=== PATIENT | female | born 1935 ===

== ENCOUNTER 2016-07-12 18:17 | Inpatient (IN) | payer MEDICARE, BC, MEDICAID ==
[~2016-07-12] VITALS: Ht 165.1 cm; Wt 59.0 kg
--- NOTE | ~2016-07-12 | CN ---
PATIENT NAME:ANSHUL PLASCENCIA MEDICAL RECORD: [id number] : 39 LOCATION:D. D.[id number] ADMIT DATE: 07/13/16 ACCOUNT: [id number] CONSULTING PHYSICIAN: LINDSAY RIOS MD REFERRING PHYSICIAN: GRACIELA CASTRO MD DATE OF CONSULTATION: 07/14/2016 CONSULT REQUESTING PHYSICIAN: Dr. Graciela Castro. REASON FOR CONSULTATION: Acute mental status changes, metabolic acidosis. HISTORY OF PRESENT ILLNESS: Ms. Plascencia is a 80-year-old female, who is at nursing rehab, the patient was brought into the ER on the of this month with acute mental status changes and metabolic acidosis. She was also having UTI and the patient will put on Rocephin. Repeat ABG was done today and her pH is still 7.1 and her bicarbonate is 14. The patient denies any fever and chills. She just says she is very cold and very weak. There is cough without much sputum production. REVIEW OF SYSTEMS: Mainly in the history of present illness. PAST MEDICAL HISTORY: 1. Parkinson disease. 2. Hypertension. 3. History of cerebrovascular accident. 4. History of seizure disorder. 5. Coronary artery disease. 6. History of atrial fibrillation. PAST SURGICAL HISTORY: Nonsignificant. ALLERGIES: SHE IS ALLERGIC TO PENICILLIN, MORPHINE, PRAVASTATIN AND PROMETHAZINE. PRESENT MEDICATIONS: [employer] was reviewed. PERSONAL AND SOCIAL HISTORY: The patient is a intermediate resident. She is a nonsmoker, nondrinker. FAMILY HISTORY: Noncontributory. PHYSICAL EXAMINATION: GENERAL: Now, the patient is lying comfortably. She is not in acute distress. VITAL SIGNS: The blood pressure is 115/67, pulse is 72, respiration is 16, temperature 98.1, SPO2 is 98-100% on 2 liters nasal cannula. HEENT: Conjunctivae is pink, sclerae nonicteric. NECK: Supple, no JVD. CHEST: The chest excursion is minimal on bibasilar crackles. No wheezing. HEART: Rhythm regular, normal sound, no murmur. ABDOMEN: Soft, bowel sounds present. No hepatosplenomegaly. RECTAL: Deferred. EXTREMITIES: No cyanosis, no clubbing, no pedal edema. CENTRAL NERVOUS SYSTEM: The patient has weakness on the left side. She is legally blind. CONSULT REPORT [id number] ANSHUL PLASCENCIA LABORATORY DATA: CBC: WBC 12.6, hemoglobin 11.1, hematocrit 34.3, the platelet count is 191. Chemistry: Sodium 141, potassium 3.9, BUN is 29, creatinine 1.3, the bicarb is 13.6. ABG: The pH is 7.18, pCO2 is 36.6, the pO2 was 86, bicarbonate is 13.9. The lactic acid level is 1.24. The ammonia level was 27. IMAGING: Chest radiograph, there is thoracic scoliosis. There is increased interstitial markings. CT scan of the head, there are no acute intracranial abnormality. There is a stable encephalomalacia bilaterally. IMPRESSION: 1. Acute mental status changes most likely secondary to sepsis and metabolic encephalopathy. 2. Septicemia. 3. Metabolic acidosis secondary to sepsis. 4. Urinary tract infection. 5. Leukocytosis secondary to sepsis. 6. Parkinson disease. 7. Status post cerebrovascular accident. 8. History of atrial fibrillation. RECOMMENDATION: 1. I will discontinue the Rocephin and start her on Zosyn and Levaquin. 2. Continue supplemental oxygen. 3. Start her on bicarb drip. 4. Follow up labs and chest radiograph in the morning. Dr. Castro, once again thanks for involving me in the care of Ms. Plascencia. The patient is DNR. TRANSINT:[id number] Voice Confirmation ID: [id number] DOCUMENT ID: [id number] LINDSAY RIOS MD CC: GRACIELA CASTRO MD [id number] DICTATION DATE: 07/14/16 162 HURL SHAKER: 07/14/16 2356 ADM IN [place] [id number] [place] [id number]
[~2016-07-12 18:17] MED LIST: ACETAMINOPHEN500 M1 PO; ALTACE5 MG PO; ARICEPT10 MG PO; BUSPAR10 MG PO; CALAN80 MG PO; CATAPRES0.1 MG PO; COUMADIN2.5 MG PO; DEPAKOTE250 MG PO; FERROUS SULFAT325 MG PO; IMODIUM2 MG PO; LANOXIN125 MCG PO; LEVAQUIN250 MG PO; LEXAPRO20 MG PO; LIPITOR40 MG PO; LOMOTIL TABLET1 TAB PO; MELATONIN 3 MG1 TAB PO; METOPROLOL TART50 MG PO; NEURONTIN 300300 MG PO; NITRO-DUR0.3 MG TRANSDERM; NITROSTAT0.4 MG SL; QUESTRAN PACK4 G/PKT PO; REMERON15 MG PO; SINGULAIR10 MG PO; SYNTHROID75 MCG PO; VITAMIN B-121000 MCG PO
[2016-07-12 19:02] LABS: BASOPHILS 0.2 % (0.0-2.0); EOSINOPHILS 1.6 % (0-7); HEMATOCRIT 40.3 % (36.0-48.0); HEMOGLOBIN 12.8 g/dL (12-16); IMMATURE GRANULOCYTES 0.4 % (0-5); LYMPHOCYTES 18.2 % (15-50); MCH 34.2 pg (26.0-34.0); MCHC 31.8 g/dL (31.0-37.0); MCV 107.8 fL (80.0-100.0); MONOCYTES 11.6 % (2-11); RBC 3.74 10x6/uL (4.00-5.40); RDW 18.2 % (11.5-14.5)
[2016-07-12 19:03] LABS: PLATELET COUNT 193 10x3/uL (130-400)
[2016-07-12 19:04] LABS: APPEARANCE CLEAR (CLEAR); BILIRUBIN NEGATIVE (NEGATIVE); COLOR YELLOW (YELLOW); GLUCOSE NEGATIVE (NEGATIVE); KETONE NEGATIVE (NEGATIVE); LEUKOCYTE ESTERASE TRACE (NEGATIVE); NITRITE NEGATIVE (NEGATIVE); PROTEIN TRACE mg/dL (NEGATIVE); UROBILINOGEN NORMAL (NORMAL)
[2016-07-12 19:05] LABS: EPITHELIAL CELLS 0-5 /hpf (0-5); RED CELLS - URINE OCC /hpf (0-5)
[2016-07-12 19:06] LABS: BACTERIA FEW /hpf (NONE SEEN)
[2016-07-12 19:20] LABS: ALBUMIN 2.8 g/dL (3.4-5.0); BILIRUBIN - TOTAL 0.31 mg/dL (0.2-1.3); CALCIUM 9.7 mg/dL (8.5-10.1); CARBON DIOXIDE 15.5 mmol/L (21.0-32.0); CREATININE - SERUM 1.6 mg/dL (0.6-1.3); POTASSIUM - SERUM 4.5 mmol/L (3.5-5.1); PROTEIN - SERUM 7.2 g/dL (6.4-8.2)
[2016-07-12 19:37] LABS: UDS - AMPHET NEGATIVE QUAL (NEGATIVE); UDS - BARB NEGATIVE QUAL (NEGATIVE); UDS - BENZO NEGATIVE QUAL (NEGATIVE); UDS - COCAINE NEGATIVE QUAL (NEGATIVE); UDS - METH NEGATIVE QUAL (NEGATIVE); UDS - OPIATE NEGATIVE QUAL (NEGATIVE); UDS - PCP NEGATIVE QUAL (NEGATIVE); UDS - THC NEGATIVE QUAL (NEGATIVE)
--- NOTE | 2016-07-12 23:08 | NUR ---
RECEIVED FROM EMERGENCY DEPARTMENT VIA STRETCHER PER ADMISSION STAFF. DX. ALTERED MENTAL STATUS/ASPIRATION. HX; CVA 10 YEARS AGO, FLACCID ON LEFT SIDE. RESIDENT OF [facility]. VERY LETHARGIC, AND IS LEGALLY BLIND. IV IN LEFT WRIST W/ 24G IS SALINE LOCKED. GARG CATHETER PATENT WITH PARAG COLOR URINE. WILL CONTINUE TO MONITOR.
[2016-07-13] VITALS (7 sets, daily range): BP systolic 100–142; BP diastolic 51–95; Ht 165.1 cm; Wt 59.0 kg
[2016-07-13] MEDS ORDERED: VITAMIN D31000 UNI2 PO (08:33)
[2016-07-13] MEDS ORDERED: BUSPAR5 MG PO (08:34)
[2016-07-13] MEDS ORDERED: K-DUR20 MEQ PO (08:36)
[2016-07-13] MEDS ORDERED: SINEMET CR 50-1 EACH PO (08:37)
[2016-07-13 09:54] LABS: INR 1.29 (0.85-1.17)
[2016-07-13 11:45] LABS: CALCIUM 9.4 mg/dL (8.5-10.1); CARBON DIOXIDE 12.1 mmol/L (21.0-32.0); CREATININE - SERUM 1.4 mg/dL (0.6-1.3); POTASSIUM - SERUM 4.1 mmol/L (3.5-5.1)
--- NOTE | 2016-07-13 23:41 | NUR ---
RESUMED CARE OF PT, BED IS LOW, SRX2, CALL LIGHT IN REACH, WILL CONTINUE TO MONITOR
[2016-07-14 02:00] VITALS: BP 108/53
[2016-07-14 04:30] VITALS: BP 117/67
[2016-07-14 05:47] LABS: BASOPHILS 0.1 % (0.0-2.0); EOSINOPHILS 0.2 % (0-7); HEMATOCRIT 34.3 % (36.0-48.0); HEMOGLOBIN 11.1 g/dL (12-16); IMMATURE GRANULOCYTES 0.4 % (0-5); LYMPHOCYTES 10.3 % (15-50); MCH 34.6 pg (26.0-34.0); MCHC 32.4 g/dL (31.0-37.0); MCV 106.9 fL (80.0-100.0); MEAN PLATELET VOLUME 12.3 fL (7.4-10.4); MONOCYTES 5.6 % (2-11); NEUTROPHILS 83.4 % (40-80); PLATELET COUNT 191 10x3/uL (130-400); RBC 3.21 10x6/uL (4.00-5.40); RDW 18.2 % (11.5-14.5)
[2016-07-14 05:49] LABS: WBC 12.6 10x3/uL (4.8-10.8)
[2016-07-14 06:17] LABS: ANION GAP 17.3 mmol/L (8-16); CALCIUM 9.3 mg/dL (8.5-10.1); CARBON DIOXIDE 13.6 mmol/L (21.0-32.0); CREATININE - SERUM 1.3 mg/dL (0.6-1.3); POTASSIUM - SERUM 3.9 mmol/L (3.5-5.1)
[2016-07-14 07:31] VITALS: BP 128/62
--- NOTE | 2016-07-14 07:57 | NUR ---
RECEIVED REPORT FROM NIGHT NURSE. PATIENT ASLEEP. WILL CONTINUE TO MONITOR.
--- NOTE | 2016-07-14 11:00 | NUR ---
ASSUMED CARE FOR THIS PT FOR THE REMAINDER OF [facility]. INTRODUCED MYSELF TO PT PRIMARY RN FOR TODAY. NO CURRENT NEEDS AT THIS TIME. WILL CHECK CHART ORDERS AND CPOC.
--- NOTE | 2016-07-14 12:20 | NUR ---
Nutrition follow-up: Diet: Mechanical soft with thin liquids Pt has been refusing meals; pt is being assisted with all meals; will drink Ensure. labs noted Wt: 129# Will continue to provide food choices and honor food preferences. Ensure ordered with all trays. RDN following.
--- NOTE | 2016-07-14 12:47 | NUR ---
PT DENIES WANTING TO EAT LUNCH. ASSISTED PT WITH DRINKING AN ENSURE. SHE DRANK ALL OF HER STRAWBERRY ENSURE AND FOLLOWED IT WITH WATER. SHE IS NOW RESTING AND DENIES ANY FURTHER NEEDS AT THIS TIME.
[2016-07-14 12:52] VITALS: BP 115/67
--- NOTE | 2016-07-14 15:02 | NUR ---
VERBAL ORDER GIVEN PER TO D/C GARG R/T IT NOT MEETING CRITERIA AND PT STATES SHE CAN VOID ON HER OWN. D/C BULB WITH 8CC RETURN OF FLUID. REMOVED STAT LOCK WITH ALCOHOL. CHANGED LINENS AND PROVIDED BED BATH WITH ASSISTANCE OF WILLIAM COBB. REPOSITIONED PT UP IN BED. PT HAS CL IN HAND WITH NURSE BUTTON EASILY ACCESSED, BED IN LOWEST, SIDE RAILS X2, CL IN REACH. WILL CPOC.
--- NOTE | 2016-07-14 16:11 | NUR ---
PT WISHES TO BE A DNR, COPIES REQUESTED FROM [facility] AND [facility], VERBAL ORDER FROM GIVEN TO MAKE PT DNR. DNR SHEET PLACED IN CHART.
[2016-07-14 16:12] VITALS: BP 132/69; BP 32/69
--- NOTE | 2016-07-14 17:02 | NUR ---
INITIATED PTS BICARB DRIP INFUSING @75ML/HR VIA L.WRIST PIV, ALONG WITH IVPB INFUSING OVER 30MINS. PT IS SITTING UP IN BED RESTING QUIETLY, EXPLAINED TO PT REASONING AND SHE VERBALIZED UNDERSTANDING BUT NEEDS FREQUENT TEACHING/REMINDERS. PT DENIES ANY PAIN AND C/O BEING COLD, PROVIDED HER WITH A BLANKET FROM THE WARMER. NO FURTHER NEEDS. WILL CPOC.
[2016-07-14 19:12] LABS: INR 1.77 (0.85-1.17); PROTIME 20.6 SECONDS (11.6-15.0)
--- NOTE | 2016-07-14 19:20 | NUR ---
RECEIVED REPORT, PT IS BLIND, HAS A PACEMAKER, IV-L.WRIST-BICARB @75, BOX ALARM IS ON, CALL LIGHT IN REACH, WILL CONTINUE TO MONITOR
[2016-07-14 20:23] VITALS: BP 132/65
--- NOTE | 2016-07-14 21:58 | NUR ---
PT RESTING SOUNDLY WITHOUT C/O OR DISTRESS NOTED. NO NEEDS VOICED. CALL LIGHT WITHIN REACH. WILL CONT TO MONITOR.
[2016-07-15 00:07] VITALS: BP 102/50
[2016-07-15 04:26] VITALS: BP 119/74
--- NOTE | 2016-07-15 05:10 | NUR ---
PT SLEEPING, BOX ALARM ON, CALL LIGHT IN REACH, BED IS LOW, SRX2
[2016-07-15 06:53] LABS: BASOPHILS 0.1 % (0-2); EOSINOPHILS 2.1 % (0-7); HEMATOCRIT 29.4 % (36.0-48.0); HEMOGLOBIN 9.9 g/dL (12-16); IMMATURE GRANULOCYTES 0.2 % (0-5); LYMPHOCYTES 17.4 % (15-50); MCH 34.3 pg (26.0-34.0); MCHC 33.7 g/dL (31.0-37.0); MEAN PLATELET VOLUME 12.1 fL (7.4-10.4); MONOCYTES 10.7 % (2-11); NEUTROPHILS 69.5 % (40-80); PLATELET COUNT 175 10x3/uL (130-400); RBC 2.89 10x6/uL (4.00-5.40); RDW 17.5 % (11.5-14.5)
[2016-07-15 07:02] LABS: MCV 101.7 fL (80.0-100.0)
[2016-07-15 07:12] LABS: ALBUMIN 2.1 g/dL (3.4-5.0); BILIRUBIN - TOTAL 0.39 mg/dL (0.2-1.3); CALCIUM 8.7 mg/dL (8.5-10.1); CREATININE - SERUM 1.1 mg/dL (0.6-1.3); MAGNESIUM - SERUM 1.9 mg/dL (1.8-2.4); PROTEIN - SERUM 5.4 g/dL (6.4-8.2)
[2016-07-15 07:18] LABS: ANION GAP 12.8 mmol/L (8-16); CARBON DIOXIDE 19.9 mmol/L (21.0-32.0); POTASSIUM - SERUM 2.7 mmol/L (3.5-5.1)
--- NOTE | 2016-07-15 07:21 | NUR ---
0700-AM ROUNDING DONE. PATIENT IS RESTING WITH EYES CLOSED, AROUSES EASILY. STATES THAT SHE IS BLIND, CALL LIGHT HAS A COTTON BALL CERTIFIED APPLIANCE SERVICE TECHNICIAN BUTTON. PATIENT IS DNR CODE STATUS. ON 2L PER NC. LEFT WRIST SEEN WITH NA BICARB INFUSING AT 75 CC/HR. BOX ALARM IN USE. 0715-LAB TO CALL WITH CTIRICAL POTASSIUM OF 2.7. WILL NOTIFY THE DOCTOR.
[2016-07-15 08:12] VITALS: BP 113/57
--- NOTE | 2016-07-15 08:47 | NUR ---
DR SHULTZ BEEPED FOR POTASSIUM OF 2.7, AWAITING CALL BACK. [id number]-DR PEREZ TO CALL BACK WITH NEW ORDERS.
[2016-07-15 12:46] VITALS: BP 120/63
--- NOTE | 2016-07-15 12:57 | NUR ---
CLEANED UP FROM INCONTINENT OF URINE. STAGE 1-2 SEEN TO COCCYX, MEDPILEX APPLIED TO THIS AND DATED. GROIN AND PERINEAL AREA ARE SEEN TO BE RED AND EXCOREATED. BUTT PASTE APPLIED. LAYING ON RIGHT SIDE WITH PILLOW BEHIND BACK. CALL LIGHT AT SIDE.
[2016-07-15 15:46] VITALS: BP 105/51
--- NOTE | 2016-07-15 16:24 | NUR ---
DR SHULTZ HERE TO SEE PATIENT.
--- NOTE | 2016-07-15 18:13 | NUR ---
IV TO LEFT INNER WRIST HAS INFILTRATED. TRIED X 3 TO RE-SITE, UNABLE TO. WILL PASS TO NEXT SHIFT. OLD IV REMOVED WITH CATH TIP INTACT.
--- NOTE | 2016-07-15 19:20 | NUR ---
RECEIVED REPORT, IV IS OUT, KINZA RESTARTED TO R. WRIST, BICARB INFUSING AT 75, BOX ALARM IS ON, CALL LIGHT IN REACH, WILL CONTINUE TO MONITOR
[2016-07-15 20:07] VITALS: BP 125/57
[2016-07-16] VITALS (7 sets, daily range): BP systolic 103–159; BP diastolic 60–81
[2016-07-16 06:17] LABS: BASOPHILS 0.1 % (0-2); EOSINOPHILS 2.9 % (0-7); HEMOGLOBIN 10.6 g/dL (12-16); IMMATURE GRANULOCYTES 0.4 % (0-5); MCH 33.9 pg (26.0-34.0); MCHC 33.1 g/dL (31.0-37.0); MCV 102.2 fL (80.0-100.0); MEAN PLATELET VOLUME 12.2 fL (7.4-10.4); MONOCYTES 11.1 % (2-11); NEUTROPHILS 70.5 % (40-80); PLATELET COUNT 194 10x3/uL (130-400); RBC 3.13 10x6/uL (4.00-5.40); RDW 17.9 % (11.5-14.5)
[2016-07-16 06:39] LABS: ALBUMIN 2.2 g/dL (3.4-5.0); BILIRUBIN - TOTAL 0.52 mg/dL (0.2-1.3); CALCIUM 8.9 mg/dL (8.5-10.1); MAGNESIUM - SERUM 1.9 mg/dL (1.8-2.4); POTASSIUM - SERUM 3.3 mmol/L (3.5-5.1)
[2016-07-16 06:42] LABS: ANION GAP 11.2 mmol/L (8-16); CARBON DIOXIDE 26.1 mmol/L (21.0-32.0)
--- NOTE | 2016-07-16 07:23 | NUR ---
0710-AM ROUNDING DONE WITH PATIENT APEARING ASLEEP, EYES CLOSED, RESP ARE EVEN AND NON LABORED. BOX ALARM IS IN USE. ON 2L PER NC. PATIENT IS A DNR CODE STATUS. RIGHT WRIST SEEN WITH NA BICARB INFUSING AT 75 CC/HR. ON EP WITH LAB VALUES OF K+ 3.3 AND PHOS OF 1.0, WILL GIVE SUPPLEMENTS. PATIENT IS BLIND. WILL CONTINUE TO MONITOR.
--- NOTE | 2016-07-16 16:55 | NUR ---
CLEANED UP FROM INCONT. OF URINE AND BM. COMPLETE LINEN CHANGE. MEPILEX TAKEN OFF COCCYX, CALMOSEPTINE APPLIED.
--- NOTE | 2016-07-16 17:25 | NUR ---
GOT PATIENT TO EAT SEVERAL BITES OF CORTEZ COBBLER WITH VANILLA ICE CREAM ON IT, ALSO 3 BITES OF CARROTS, AND 2 BITES OF RICE WITH BROWN GRAVY. APPROX 120 CC OF VANILLA ENSURE AND 120 CC ICE TEA.
--- NOTE | 2016-07-16 19:33 | NUR ---
RESUMED CARE OF PT, LYING IN BED RESPIRATIONS EVEN AND UNLABORED ON 2LPM VIA NC. RIGHT WRIST INFUSING BICARB @ 50. BOX ALARM ON. NO NEEDS VOICED AT THIS TIME. WILL CONTINUE TO MONITOR. SEE NURSE ASSESSMENT.
--- NOTE | 2016-07-17 03:15 | NUR ---
INCONTINENT EPISODE CLEANED UP. BED BATH GIVEN AND LINENS CHANGED. CALMOSEPTINE APPLIED TO BUTTOCK AND KENIA AREA.
[2016-07-17 03:41] VITALS: BP 115/64
[2016-07-17 06:09] LABS: BASOPHILS 0.1 % (0-2); EOSINOPHILS 3.4 % (0-7); HEMATOCRIT 27.2 % (36.0-48.0); IMMATURE GRANULOCYTES 0.3 % (0-5); LYMPHOCYTES 14.9 % (15-50); MCH 34.5 pg (26.0-34.0); MCHC 33.1 g/dL (31.0-37.0); MEAN PLATELET VOLUME 12.2 fL (7.4-10.4); NEUTROPHILS 69.3 % (40-80); PLATELET COUNT 166 10x3/uL (130-400); RBC 2.61 10x6/uL (4.00-5.40); WBC 7.6 10x3/uL (4.8-10.8)
[2016-07-17 06:20] LABS: INR 3.62 (0.85-1.17); PROTIME 36.5 SECONDS (11.6-15.0)
--- NOTE | 2016-07-17 06:25 | NUR ---
NO CHANGES FROM PREVIOUS ASSESSMENT, CALL LIGHT IN REACH.
[2016-07-17 06:26] LABS: MCV 104.2 fL (80.0-100.0)
[2016-07-17 06:30] LABS: ALBUMIN 1.7 g/dL (3.4-5.0); BILIRUBIN - TOTAL 0.5 mg/dL (0.2-1.3); CALCIUM 8.2 mg/dL (8.5-10.1); CREATININE - SERUM 0.9 mg/dL (0.6-1.3); PROTEIN - SERUM 4.9 g/dL (6.4-8.2)
[2016-07-17 07:00] LABS: ANION GAP 7.7 mmol/L (8-16); MAGNESIUM - SERUM 1.8 mg/dL (1.8-2.4); PHOSPHOROUS 1.5 mg/dL (2.5-4.9); POTASSIUM - SERUM 3.7 mmol/L (3.5-5.1)
[2016-07-17 07:44] VITALS: BP 123/60
--- NOTE | 2016-07-17 08:30 | NUR ---
INTRODUCED MYSELF TO PT PRIMARY RN FOR [facility]. DAUGHTER IS AT BEDSIDE. PT IS VERY LETHARGIC AND SLOW TO RESPOND, HAD TO UNCOVER AND STIMULATE FEET FOR HER TO WAKE UP. PT STATES "IM JUST TIRED". PT IS BLIND AND PUPILS DO NOT REACT HER BASELINE. PT IS CONFUSED EXCEPT TO PERSON. PT IS VERY SLOW TO RESPOND AND HAS BEEN REFUSING TO EAT. ADMINISTERED MORNING MEDICATIONS AND PT SWALLOWED WELL WITH ORANGE JUICE. REPLACED PTS PHOSPHOROUS PER ELECTROLYTE PROTOCOL, MIXED POWDER WITH ORANGE JUICE AND PT SWALLOWED WITHOUT ANY DIFFICULTIES. PT IS INCONTINENT OF URINE, CURRENTLY DRY. BUTTOCKS IS VERY REDDENED AND EXCORIATED BUT SKIN STILL INTACT NO SORES NOTED, APPLIED JARED. REPOSITIONED PT UP IN BED FOR COMFORT. PT JUST VERY FLAT AFFECT AND WEAK. DAUGHTER STATES ITS BEEN HER BASELINE LATELY AT [place] BUT PREVIOUSLY IT WASNT HER BASELINE. ENCOURAGED DAUGHTER TO TRY AND HELP HER EAT ANYTHING SHE WILL. NO FURTHER NEEDS AT THIS TIME. WILL CPOC.
--- NOTE | 2016-07-17 10:26 | NUR ---
INITIATED PTS IV SODIUM BICARB ORDERED. INFUSING @75ML/HR VIA R.WRIST PIV WITH DRSG CDI AND SWAB CAPS IN USE. PT RESTING QUIETLY IN BED WITH EYES CLOSED. WILL CPOC.
--- NOTE | 2016-07-17 11:48 | NUR ---
PHOSPHOROUS REPLACEMENT 2/3 GIVEN, PER ELECTROLYTE PROTOCOL REPLACEMENT. PT IS MORE ALERT AND AWAKE AT THIS TIME. PT WAS INCONTINENT OF URINE, CHANGED OUT ALL LINENS AND PROVIDED KENIA CARE AND APPLIED MORE JARED OINTMENT FOR EXCORIATION ON BUTTOCKS. REPOSITIONED PT UP IN BED AND SHE STATES SHE IS COMFORTABLE. PT DENIES ANY FURTHER NEEDS AT THIS TIME, WAIST PLEATERTri COBB WILL TRY TO GET HER TO EAT OR DRINK AN ENSURE WHEN LUNCH TRAYS COME. NO FURTHER NEEDS AT THIS TIME. WILL CPOC.
[2016-07-17 12:19] VITALS: BP 108/71
--- NOTE | 2016-07-17 12:30 | NUR ---
NOTE FROM YESTERDAY SAID D/C SODIUM BICARB. SODIUM BICARB NOW D/C. RECONNECTED PT TO HER IV FLUIDS OF NS @50ML/HR WITH INTERMITT. ANBX.
[2016-07-17 15:51] VITALS: BP 154/70
--- NOTE | 2016-07-17 19:25 | NUR ---
ASSESSMENT COMPELTE, NO S/S DISTRESS NOTED, WILL CONT TO MONITOR.
[2016-07-17 19:49] VITALS: BP 114/37
--- NOTE | 2016-07-17 21:01 | NUR ---
HS MEDS GIVEN, PT DENIES PAIN OR OTHER NEEDS, BED LOW, CL IN REACH.
[2016-07-17 23:50] VITALS: BP 112/53
--- NOTE | 2016-07-17 23:53 | NUR ---
ASSIST PT WITH BED BAER.
--- NOTE | 2016-07-18 00:03 | NUR ---
CHIEF OF SAFETY AND PROTECTION AT BEDSIDE FOR VS. NEEDS ADDRESSED. CALL LIGHT IN REACH. WILL CONT TO MONITOR.
--- NOTE | 2016-07-18 02:13 | NUR ---
RESTING WITH EYES CLOSED, RESPERATIONS EVEN, NO S/S DISTRESS NOTED.
[2016-07-18 03:39] VITALS: BP 98/48
[2016-07-18 05:31] LABS: BASOPHILS 0.2 % (0-2); EOSINOPHILS 4.3 % (0-7); HEMATOCRIT 28.2 % (36.0-48.0); HEMOGLOBIN 9.1 g/dL (12-16); IMMATURE GRANULOCYTES 0.2 % (0-5); LYMPHOCYTES 17.6 % (15-50); MCHC 32.3 g/dL (31.0-37.0); MCV 105.2 fL (80.0-100.0); MEAN PLATELET VOLUME 12.3 fL (7.4-10.4); NEUTROPHILS 64.7 % (40-80); PLATELET COUNT 175 10x3/uL (130-400); RBC 2.68 10x6/uL (4.00-5.40); RDW 17.8 % (11.5-14.5); WBC 8.2 10x3/uL (4.8-10.8)
[2016-07-18 06:15] LABS: ALBUMIN 1.6 g/dL (3.4-5.0); BILIRUBIN - TOTAL 0.6 mg/dL (0.2-1.3); CALCIUM 8.2 mg/dL (8.5-10.1); CARBON DIOXIDE 33.3 mmol/L (21.0-32.0); CREATININE - SERUM 1.1 mg/dL (0.6-1.3); MAGNESIUM - SERUM 1.4 mg/dL (1.8-2.4); PHOSPHOROUS 2.8 mg/dL (2.5-4.9)
[2016-07-18 06:17] LABS: POTASSIUM - SERUM 4.3 mmol/L (3.5-5.1)
[2016-07-18 07:58] VITALS: BP 113/66
[2016-07-18 08:08] LABS: INR 3.87 (0.85-1.17); PROTIME 38.5 SECONDS (11.6-15.0)
--- NOTE | 2016-07-18 10:02 | NUR ---
PT CALLED FOR BEDPAN AND HAD SMALL DARK GREEN SOFT FORMED BM. APPLIED JARED OINTMENT TO REDDENED AREA ON BUTTOCKS. PT IS MUCH MORE ALERT TODAY AND VERY TALKATIVE AND ORIENTED. PT RESTING QUIETLY WITH DAUGHTER AT BEDSIDE AND DENIES ANY FURTHER NEEDS AT THIS TIME. CL IN REACH. WILL CPOC.
--- NOTE | 2016-07-18 11:50 | NUR ---
IV ACCESS-22 GAUGE INSERTED IN LEFT HAND FOR ACCESS. RAVI NOELRN
--- NOTE | 2016-07-18 12:37 | NUR ---
R.WRIST PIV INFILTRATED. D/C WITH CATHETER TIP FULLY INTACT. NEW ACCESS GAINED IN L.HAND PER HASEEB RODRIGUES, VASCULAR NURSE. PT RESTING IN BED AND DENIES ANY CURRENT NEEDS. WILL CPOC.
--- NOTE | 2016-07-18 14:11 | NUR ---
Nutrition follow-up: Diet: mechanical soft regular; pt must be fed due to blindness PO intake has been ~25% of meals Labs reivewed +BM Pt reports she is eating better. RDN will make sure she is getting a nutritional supplement. RDN following.
[2016-07-18 15:58] VITALS: BP 121/73
[2016-07-18 20:44] VITALS: BP 133/76
--- NOTE | 2016-07-18 21:37 | NUR ---
HS MEDS GIVEN WITH FRESH ICE WATER. PT DENIES PAIN OR NEEDS, BED LOW, CL IN REACH, WILL CONT TO MONITOR.
[2016-07-18 23:58] VITALS: BP 112/31
--- NOTE | 2016-07-19 02:17 | NUR ---
RESTING WITH EYES CLOSED, REPSERATIONS EVEN, NO S/S DISTRESS NOTED.
[2016-07-19 03:55] VITALS: BP 112/51
--- NOTE | 2016-07-19 04:59 | NUR ---
PT INCONTINENT OF B&B, FAMILY PRESERVATION OFFICER AT BED SIDE, BATH AND LINEN CHANGE COMPLETE.
[2016-07-19 06:10] LABS: BASOPHILS 0.1 % (0-2); EOSINOPHILS 2.5 % (0-7); HEMATOCRIT 26.9 % (36.0-48.0); HEMOGLOBIN 8.6 g/dL (12-16); IMMATURE GRANULOCYTES 0.4 % (0-5); LYMPHOCYTES 23.4 % (15-50); MCH 33.7 pg (26.0-34.0); MCV 105.5 fL (80.0-100.0); MEAN PLATELET VOLUME 11.8 fL (7.4-10.4); MONOCYTES 13.4 % (2-11); NEUTROPHILS 60.2 % (40-80); PLATELET COUNT 152 10x3/uL (130-400); RBC 2.55 10x6/uL (4.00-5.40); RDW 16.8 % (11.5-14.5); WBC 6.9 10x3/uL (4.8-10.8)
[2016-07-19 06:32] LABS: BILIRUBIN - TOTAL 0.6 mg/dL (0.2-1.3); CARBON DIOXIDE 32.6 mmol/L (21.0-32.0); CREATININE - SERUM 1.3 mg/dL (0.6-1.3); MAGNESIUM - SERUM 1.4 mg/dL (1.8-2.4); PROTEIN - SERUM 5.1 g/dL (6.4-8.2)
[2016-07-19 06:33] LABS: POTASSIUM - SERUM 3.6 mmol/L (3.5-5.1)
[2016-07-19 07:38] VITALS: BP 111/54
--- NOTE | 2016-07-19 11:55 | NUR ---
DISCONNECTED PT FROM IV POLE AND SL L.HAND SITE. PT HAD SMALL SOFT DARK GREEN FORMED STOOL. CLEANED PT UP AND PROVIDED NEW CLEAN LINENS. ASSISTED PT BACK INTO BED FROM BEDSIDE CHAIR. PT DENIES ANY CURRENT PAIN OR FURTHER NEEDS. CL IN REACH. WILL CPOC.
[2016-07-19 12:16] VITALS: BP 116/52
[2016-07-19 14:35] VITALS: BP 118/70
[2016-07-19] MEDS ORDERED: LEVAQUIN PO (15:12)
[2016-07-19] MEDS ORDERED: METOPROLOL TART25 MG PO (15:15)
[2016-07-19] MEDS ORDERED: FLORASTOR250 MG PO (15:17)
[2016-07-19] MEDS ORDERED: LEVAQUIN500 MG PO (15:35)
--- NOTE | 2016-07-19 15:52 | NUR ---
Patient Name: ANSHUL PLASCENCIA Admission Status: ER Accout number: [id number] Admission Date: 07-13-2016 : 1937 Admission Diagnosis:ALTERED MENTAL STATUS, UNSPECIFIED Attending: NIURKA Current LOS: 6 Anticipated DC Date: 07-19-2016 Planned Disposition: [facility] Facility Primary Insurance: MEDICARE A & B PLANNED EXTERNAL PROVIDER: [facility], MEDICARE REHAB BED Discharge Planning Comments: * Is the patient Alert and Oriented? No 0 * How many steps to enter\exit or inside your home? NONE 0 * PCP DR. OSORIO 0 * Pharmacy [facility] 0 * Preadmission Environment [employer] [facility] 0 * Facility Name [facility] 0 * ADLs Total Dependent 0 * Equipment Other 0 * Other Equipment ALL MEDICAL EQUIPMENT PROVIDED BY [facility] 0 * List name and contact numbers for known caregivers / representatives who currently or will assist patient after discharge: MANDY MARCH, DAUGHTER, 0 * Community resources currently utilized None 0 * Please name any agencies selected above. NONE 0 * Additional services required to return to the preadmission environment? No 0 * Can the patient safely return to the preadmission environment? Yes 0 * Has this patient been hospitalized within the prior 30 days at any hospital? No 0 CM ATTEMPTED TO MEET WITH PT IN ROOM, PT REPORTED LIVING AT HOME ALONE WITH NO ASSISTANCE, DIRECTED CM TO CALL HER DAUGHTER MANDY WHO ASSISTS WITH DECISIONS FOR DISCHARGE PLANNING. CM PROVIDED AND EXPLAINED IMPORTANT MESSAGE FROM MEDICARE. CM SPOKE TO DR. CASTRO WHO REPORTS SHE IS READY TO DISCHARGE PT BACK TO [place] TODAY. CM CALLED MANDY MARCH, , DISCUSSED DISCHARGE ORDER; MANDY REPORTS PT LIVES AT [place] AND WILL RETURN THERE TODAY AT DISCHARGE. MANDY WILL CALL [place] LATER TODAY TO ENSURE PT ARRIVED AND ASKED CM TO ARRANGE TRANSPORTATION WITH [place]. BELA SPOKE TO BEDSIDE NURSE KALINA WHO VERIFIED PT IS ABLE TO SIT FOR DURATION OF TRANSPORT TO THE FACILITY IN WHEELCHAIR. [facility], , SPOKE TO KEVIN WHO VERFIED PT HAS LIVED AT [place] IN HALFWAY CARE FOR YEARS AND WILL RETURN AT DISCHARGE. BELA NOTIFIED OF DISCHARGE. [facility] TO SOFTWARE APPLICATIONS DEVELOPER PT AT ABOUT 4:30PM TODAY. BELA NOTIFIED KEVIN THAT OXYGEN WAS NEEDED. CM FAXED DISCHARGE INFORMATION TO [place] AT [phone]. BEDSIDE NURSE NOTIFIED. NURSE REPORT TO BE CALLED TO [facility], NURSE NIVIA, . [place] [facility] TO SOFTWARE APPLICATIONS DEVELOPER PT AT ABOUT 1630 HOURS. Adjunct Psychology Faculty Member: Malcolm Kaur
[2016-07-19 16:24] VITALS: BP 98/57
--- NOTE | 2016-07-19 16:52 | NUR ---
D/C L.HAND PIV WITH CATHETER TIP FULLY INTACT. CALLED REPORT TO NURSE NIVIA @ [facility]. ASSISTED PT GETTING DRESSED AND HAVE HER READY AND WAITING IN THE CHAIR FOR [facility] TO PICK HER UP.
--- NOTE | 2016-07-19 17:33 | NUR ---
[facility] HERE NOW TO TRANSPORT PT. PAPERS GIVEN TO TRANSPORTER. NO FURTHER NEEDS.
[2016-07-20 09:17] LABS: FOLATE (FOLIC ACID) - SERUM 11.8 ng/mL (>3.0)
== END 2016-07-19 17:33 | DRG 871 ==
LOC: D.ER 18:17 → OBSVTIME 22:00 → D.M2 22:00
PROVIDERS: Emergency Medicine; Family Medicine; Internal Medicine Pulmonary Disease; ADMIT Family Medicine
PROC: 0T9B70Z Drainage of Bladder with Drainage Device, Via Natural or Artificial Opening (ICD-10-PCS; principal; 2016-07-12)
DX: A41.9 Sepsis, unspecified organism (principal); G93.49 Other encephalopathy; N39.0 Urinary tract infection, site not specified; I69.354 Hemiplegia and hemiparesis following cerebral infarction affecting left non-dominant side; I69.319 Unspecified symptoms and signs involving cognitive functions following cerebral infarction; I69.312 Visuospatial deficit and spatial neglect following cerebral infarction; G20 Parkinson's disease; F01.50 Vascular dementia, unspecified severity, without behavioral disturbance, psychotic disturbance, mood disturbance, and anxiety; F41.8 Other specified anxiety disorders; I25.10 Atherosclerotic heart disease of native coronary artery without angina pectoris; I10 Essential (primary) hypertension; R56.9 Unspecified convulsions; I48.91 Unspecified atrial fibrillation; Z79.01 Long term (current) use of anticoagulants; E03.9 Hypothyroidism, unspecified; E55.9 Vitamin D deficiency, unspecified; E78.5 Hyperlipidemia, unspecified; D64.9 Anemia, unspecified; E87.6 Hypokalemia